=== PATIENT | female | born 1960 | race Caucasian/White ===

== ENCOUNTER 2016-08-11 06:34 | Emergency (ER) | payer BC ==
[2016-08-11] MEDS ORDERED: methylPREDNISolone Sodium Succinate 125 MG/2 ML SDV IVPUSH ONE (07:03)
[2016-08-11] MEDS ORDERED: Sodium Chloride 0.9% 10 ML Syringe FLUSH PRN (07:03)
[2016-08-11] MEDS ORDERED: Albuterol/Ipratropium 3.0-0.5 MG/3 ML Neb Soln NEB ONE (07:03)
--- NOTE | 2016-08-11 07:06 | EDM.PDOC ---
ED HISTORY OF PRESENT ILLNESS - General Chief Complaint: Asthma Stated Complaint: SOB Time Seen by Provider: 08/11/16 07:02 Source: Reports: Patient, Family, RN notes reviewed History Limitations: Reports: No limitations - History of Present Illness INITIAL COMMENTS - FREE TEXT/NARRATIVE: 55-year-old female presents emergency department complaint of shortness of breath she does have a known history of asthma she states symptoms that developed last 24 hours she's been unable if her breathing under control with her albuterol alone. - Related Data Allergies/ADRs: Allergies Allergy/AdvReac Type Severity Reaction Status Date / Time aspirin Allergy Abdominal Verified 08/11/16 06:39 Pain ibuprofen Allergy Abdominal Verified 08/11/16 06:39 Pain Penicillins Allergy Anaphylactic Verified 08/11/16 06:39 Shock Home Meds: Home Meds Albuterol Sulfate [Ventolin Hfa] 2 puff INH ASDIRECTED 06/02/16 [History] Amberan 2 cap PO DAILY 06/02/16 [History] Fluticasone/Salmeterol [Advair 250-50 Diskus] 1 puff INH ASDIRECTED 06/02/16 [ History] Montelukast Sodium [Singulair] 1 tab PO ASDIRECTED 06/02/16 [History] Past Medical History HEENT History: Reports: Impaired vision Respiratory History: Reports: Asthma Genitourinary History: Reports: UTI, recurrent [employer] History: Reports: Musculoskeletal History: Reports: Fracture Endocrine/Metabolic History: Reports: Hypothyroidism Hematologic History: Reports: Blood transfusion(s) - Infectious Disease History Infectious Disease History: Reports: Chicken pox - Past Surgical History Female Surgical History: Reports: section Social & Family History - Tobacco Use Smoking Status *Q: Never Smoker Second Hand Smoke Exposure: No - Caffeine Use Caffeine Use: Reports: Coffee - Alcohol Use Days Per Week of Alcohol Use: 0 - Recreational Drug Use Recreational Drug Use: No ED ROS GENERAL - Review of Systems Review Of Systems: See Below Constitutional: Denies: fever, chills HEENT: Reports: No symptoms Respiratory: Reports: Shortness of Breath, Wheezing, Cough. Denies: Sputum Cardiovascular: Reports: Dyspnea on exertion GI/Abdominal: Reports: No symptoms : Reports: no symptoms ED EXAM, GENERAL - Physical Exam Exam: See Below Exam Limited By: No limitations General Appearance: alert, WD/WN, no apparent distress Eye Exam: bilateral eye: normal inspection Neck: normal inspection, supple, non-tender, full range of motion Respiratory/Chest: no respiratory distress, respiratory distress, decreased breath sounds, crackles, rhonchi, wheezing (more upper air way), accessory muscle use Cardiovascular: regular rate, rhythm, no murmur Course - Vital Signs Last Recorded V/S: Last Vital Signs Temp 98.9 F 08/11/16 06:40 Pulse 115 H 08/11/16 08:44 Resp 28 H 08/11/16 08:44 BP 155/73 H 08/11/16 08:44 Pulse Ox 97 08/11/16 08:44 - Orders/Labs/Meds Orders: Active Orders 24 hr Category Date Time Status Peripheral IV Care [RC] . DIRECTED Care 08/11/16 07:03 Active RT Aerosol Therapy [RC] ASDIRECTED Care 08/11/16 07:03 Active RT Aerosol Therapy [RC] ASDIRECTED Care 08/11/16 08:15 Active Sodium Chloride 0.9% [Normal Saline] 1,000 ml Med 08/11/16 08:15 Active IV ASDIRECTED Sodium Chloride 0.9% [Saline Flush] Med 08/11/16 07:03 Active 10 ml FLUSH ASDIRECTED PRN Peripheral IV Insertion Adult [OM.PC] Urgent Oth 08/11/16 07:03 Ordered Medication Orders Sodium Chloride (Normal Saline) 1,000 mls @ 500 mls/hr IV ASDIRECTED CLARE Last Admin: 08/11/16 08:08 Dose: 500 mls/hr Sodium Chloride (Saline Flush) 10 ml FLUSH ASDIRECTED PRN PRN Reason: Keep Vein Open Last Admin: 08/11/16 07:09 Dose: 10 ml Meds: Medications Generic Name Dose Route Start Last Admin Trade Name Freq PRN Reason Stop Dose Admin Sodium Chloride 1,000 mls @ 500 mls/hr 08/11/16 08:15 08/11/16 08:08 Normal Saline IV 500 mls/hr ASDIRECTED CLARE Administration Sodium Chloride 10 ml 08/11/16 07:03 08/11/16 07:09 Saline Flush FLUSH 10 ml ASDIRECTED PRN Administration Keep Vein Open Discontinued Medications Generic Name Dose Route Start Last Admin Trade Name Freq PRN Reason Stop Dose Admin Albuterol/Ipratropium 3 ml 08/11/16 07:03 08/11/16 07:07 Duoneb 3.0-0.5 Mg/3 Ml NEB 08/11/16 07:04 3 ml ONETIME ONE Administration Diphenhydramine HCl 50 mg 08/11/16 07:48 08/11/16 07:51 Benadryl IVPUSH 08/11/16 07:49 50 mg ONETIME ONE Administration Epinephrine HCl 0.3 mg 08/11/16 07:47 08/11/16 07:50 Adrenalin 1:1000 IM 08/11/16 07:48 0.3 mg ONETIME ONE Administration Epinephrine HCl 0.3 mg 08/11/16 08:10 08/11/16 08:00 Adrenalin 1:1000 IM 08/11/16 08:11 0.3 mg ONETIME ONE Administration Lorazepam 1 mg 08/11/16 07:14 08/11/16 07:23 Ativan IVPUSH 08/11/16 07:15 1 mg ONETIME ONE Administration Methylprednisolone Sodium Succinate 125 mg 08/11/16 07:03 08/11/16 07:08 Solu-Medrol IVPUSH 08/11/16 07:04 125 mg ONETIME ONE Administration Racepinephrine 0.5 ml 08/11/16 08:15 08/11/16 08:20 S-2 2.25% NEB 08/11/16 08:16 0.5 ml ONETIME ONE Administration Ranitidine HCl 300 mg 08/11/16 08:16 08/11/16 08:30 Zantac PO 08/11/16 08:17 300 mg NOW STA Administration Departure - Departure Time of Disposition: 09:44 Disposition: Home, Self-Care 01 Condition: good Clinical Impression: Difficulty breathing Forms: ED Department Discharge Additional Instructions: Resume your regular medications, Please followup with your primary care provider in 3-5 days if not better, please call return to the emergency department with worsening of symptoms. - My Orders Last 24 Hours: My Active Orders 08/11/16 07:03 Peripheral IV Care [RC] . DIRECTED RT Aerosol Therapy [RC] ASDIRECTED Sodium Chloride 0.9% [Saline Flush] 10 ml FLUSH ASDIRECTED PRN Peripheral IV Insertion Adult [OM.PC] Urgent 08/11/16 08:15 RT Aerosol Therapy [RC] ASDIRECTED Sodium Chloride 0.9% [Normal Saline] 1,000 ml IV ASDIRECTED - Assessment/Plan Last 24 Hours: My Active Orders 08/11/16 07:03 Peripheral IV Care [RC] . DIRECTED RT Aerosol Therapy [RC] ASDIRECTED Sodium Chloride 0.9% [Saline Flush] 10 ml FLUSH ASDIRECTED PRN Peripheral IV Insertion Adult [OM.PC] Urgent 08/11/16 08:15 RT Aerosol Therapy [RC] ASDIRECTED Sodium Chloride 0.9% [Normal Saline] 1,000 ml IV ASDIRECTED Plan: Assessment Acuity = acute Site and laterality = difficulty breathing complicated patient with known moderate persistent asthma Etiology = unclear etiology suspicious for vocal cord dysfunction Manifestations = none Location of injury = [home Lab values = none Plan Given a variety of treatments including epinephrine, ranitidine, Benadryl, Solu- Medrol and racemic epinephrine nebulizer which did provide some relief to her, she has never had spirometry testing for official diagnosis of asthma her medications always been compared, recommend she establish primary care provider in town followup with diagnosis of asthma with spirometry if that is negative consider the diagnosis of vocal cord dysfunction and followup with speech pathology Patient was in agreement with the plan all questions were answered, they were instructed to return to the emergency department or call for worsening symptoms. This note was dictated using [employer] voice recognition software please call with any questions.
[2016-08-11] MEDS ORDERED: LORazepam 2 MG/ML MDV IVPUSH ONE (07:14)
[2016-08-11] MEDS ORDERED: EPINEPHrine 1:1000 1 MG/ML SDV IM ONE ×2 (07:47→08:10)
[2016-08-11] MEDS ORDERED: diphenhydrAMINE 50 MG/ML SDV IVPUSH ONE (07:48)
[2016-08-11] MEDS ORDERED: Sodium Chloride 0.9% 1,000 ML IV SCH (08:15)
[2016-08-11] MEDS ORDERED: Racepinephrine 2.25% 0.5 ML Neb Soln NEB ONE (08:15)
[2016-08-11 09:55] VITALS: BP 139/64
== END 2016-08-11 09:54 | disposition home or self-care (01) ==
LOC: JP.ED 06:34
DX: R06.89 Other abnormalities of breathing (principal); J45.909 Unspecified asthma, uncomplicated; E03.9 Hypothyroidism, unspecified; Z98.890 Other specified postprocedural states; Z79.899 Other long term (current) drug therapy; Z88.0 Allergy status to penicillin; Z88.8 Allergy status to other drugs, medicaments and biological substances
CPT/HCPCS: 96372; 96374; 96375; 99285; A9270; J0171; J1200; J2060; J2930; J7040; J7050; J7620

== ENCOUNTER 2018-01-18 05:54 | Day surgery (SDC) | payer BC, OTHER ==
[2018-01-18] MEDS ORDERED: fentaNYL 100 MCG/2 ML SDV ONE (07:04)
[2018-01-18] MEDS ORDERED: Propofol 200 MG/20 ML SDV ONE (07:04)
[2018-01-18] MEDS ORDERED: Glycopyrrolate 0.2 MG/ML 2 ML SDV IVPUSH ONE (07:04)
[2018-01-18] MEDS ORDERED: Midazolam 1 MG/ML 2 ML SDV ONE (07:04)
[2018-01-18] MEDS ORDERED: Dextrose 5%-Lactated Ringers 1,000 ML IV SCH (07:15)
[2018-01-18 08:44] VITALS: BP 115/83
--- NOTE | 2018-01-19 11:21 | OR ---
DATE OF PROCEDURE: 01/18/2018 PREOPERATIVE DIAGNOSIS: Probable gastroesophageal reflux disease. POSTOPERATIVE DIAGNOSES: 1. Gastroesophageal reflux disease refractory to medical management associated with small hiatal hernia and wide open esophagogastric junction. 2. Mild antral gastritis. OPERATIVE PROCEDURES: Esophagogastroduodenoscopy with: A. Biopsies of the antrum for CLOtest. B. Biopsies of esophagogastric junction for histologic evaluation. ANESTHESIA: IV sedation. INDICATION FOR PROCEDURE: This is a 57-year-old female presenting with longstanding gastroesophageal reflux symptoms. She has, for a considerable amount of time, been on omeprazole and more recently on Zantac. If the addition of Zantac does not significantly improve her reflux symptoms which include frequent episodes of heartburn as well as some bilious regurgitation at night, plan is to proceed with upper GI endoscopy with biopsies and/or dilation as indicated. Potential risks including bleeding and perforation were discussed, and the patient wishes to proceed. DESCRIPTION OF PROCEDURE: The patient was taken to the operating room and placed in a left lateral decubitus position. IV sedation was administered, after which the upper GI endoscope was passed orally through the length of the esophagus into the stomach with retroflexion view of the fundus, thereafter through the pyloric channel and up into the junction of the third and fourth portions of the duodenum. Findings included normal hypopharynx, larynx, upper esophageal sphincter, and esophageal body. At the EG junction, the patient was noted to have small hiatal hernia. This was associated with, however, a wide open esophagogastric junction with their being no barrier function between the stomach and the esophagus. At this point within the stomach, there was a small amount of retained bile. The patient had some mild redness in the antrum in general without erosions or ulcers. The visualized portion of the pyloric channel and duodenum were unremarkable. At this point, biopsies were taken from the antrum and sent for CLOtest for H. pylori. Following this, biopsies were obtained from the esophagogastric junction, sent for histologic evaluation. Minimal bleeding from the biopsy sites was seen and the procedure concluded. The patient was taken to the recovery room in satisfactory condition. The plan will be to see the patient back in followup on 01/27/2018. This will give some additional time to see if the Zantac is helping with regard to the symptoms. Otherwise, she is interested in a surgical antireflux procedure. Juancho Hilario MD /[id number]
== END 2018-01-18 08:45 | disposition home or self-care (01) ==
LOC: JP.SDS 05:54
PROVIDERS: ATTEND Surgery
DX: K21.9 Gastro-esophageal reflux disease without esophagitis (principal); K29.50 Unspecified chronic gastritis without bleeding; K44.9 Diaphragmatic hernia without obstruction or gangrene; J45.909 Unspecified asthma, uncomplicated; E66.9 Obesity, unspecified; Z79.899 Other long term (current) drug therapy
CPT/HCPCS: 43239; 87081; J2250; J2704; J3010; J3490; J7042; 88305

== ENCOUNTER 2018-10-07 09:13 | Day surgery (SDC) | payer OTHER ==
[2018-10-07] MEDS ORDERED: Glycopyrrolate 0.2 MG/ML 2 ML SDV IVPUSH ONE (09:45)
[2018-10-07] MEDS ORDERED: fentaNYL 100 MCG/2 ML SDV ONE (12:06)
[2018-10-07] MEDS ORDERED: Propofol 200 MG/20 ML SDV ONE (12:06)
[2018-10-07] MEDS ORDERED: Midazolam 1 MG/ML 2 ML SDV ONE (12:08)
[2018-10-07] MEDS ORDERED: Pantoprazole 40 MG Vial IVPUSH ONE (13:38)
[2018-10-07] MEDS: Dextrose 5%-Lactated Ringers 1,000 ML IV SCH ×2 (13:40→13:41)
[2018-10-07] MEDS ORDERED: Alum Hydrox/Mag Hydrox/Simeth 360 ML, Lidocaine 2% 60 ML PO SCH ×2 (14:15)
[2018-10-07 14:32] VITALS: BP 119/71
--- NOTE | 2018-10-08 14:13 | OR ---
DATE OF PROCEDURE: 10/07/2018 PREOPERATIVE DIAGNOSIS: Heartburn and dysphagia, status post previous Jorge fundoplication. POSTOPERATIVE DIAGNOSIS: Heartburn and dysphagia associated with: 1. Possible eosinophilic esophagitis. 2. Intact Jorge fundoplication. 3. Mild antral gastritis. OPERATIVE PROCEDURES: Esophagogastroduodenoscopy with: 1. Antral biopsies for CLOtest. 2. Biopsies of the esophagus at 3 levels (distal, mid, and proximal) to evaluate for possible eosinophilic esophagitis. ANESTHESIA: IV sedation. INDICATION FOR PROCEDURE: The patient is status post Jorge fundoplication in December 2018. From that point forward, she had done very well with regard to reflux symptoms. In the past few weeks with the onset of spring, she has noted quite a bit in the way of ongoing allergies and associated with this has developed some sense of heartburn and dysphagia despite ongoing medical management with Nexium. Plan is to proceed with upper GI endoscopy with biopsies as indicated for evaluation of the situation. Potential risks including bleeding and perforation were discussed, and the patient wishes to proceed. DETAILS OF PROCEDURE: The patient was taken to the operating room and placed in a left lateral decubitus position. IV sedation was administered, after which the upper GI endoscope was passed orally through the length of the esophagus and into the stomach with retroflexion view of the fundus and thereafter through the pyloric channel and into the junction of 3rd and 4th portions of the duodenum. Findings included normal hypopharynx, larynx, and upper esophageal sphincter. As one entered the body of the esophagus, there was noted to be some linear furrowing suggestive of eosinophilic esophagitis. As one passed down to the area of the EG junction, an otherwise intact Jorge fundoplication was present. There was no significant narrowing or tightening of that area and no gross inflammation of the distal esophageal mucosa per se. Within the stomach, retroflexion view once again confirmed an interval post Jorge fundoplication picture. There was some mild patchy redness in the antrum. The visualized portion of the pyloric channel and duodenum were unremarkable. At this point, biopsies were obtained from the antrum and sent for CLOtest for H. pylori. Given the suggestion of possible eosinophilic esophagitis, multiple biopsies were obtained from the distal esophagus, mid esophagus, and proximal esophagus and all sent as 3 separate specimens. Minimal bleeding from the biopsy sites was seen and the procedure then concluded. The patient was taken to the recovery room in satisfactory condition. At this point, the plan will be to see the patient back next Thursday. In the interim, we will have her continue the Nexium and we will also have her start a course of Xylocaine mixed with Maalox to be taken prior to meals to see if that helps with some of the symptoms. We will see her back next Thursday to review the findings and develop a treatment plan from that point forward. Juancho Hilario MD /[id number]
== END 2018-10-07 14:45 | disposition home or self-care (01) ==
LOC: JP.SDS 09:13
PROVIDERS: ATTEND Surgery
DX: K29.50 Unspecified chronic gastritis without bleeding (principal); K21.9 Gastro-esophageal reflux disease without esophagitis; Z98.890 Other specified postprocedural states; Z88.0 Allergy status to penicillin; Z88.6 Allergy status to analgesic agent; Z88.8 Allergy status to other drugs, medicaments and biological substances; Z91.030 Bee allergy status
CPT/HCPCS: 43239; 87081; A9270; C9113; J2250; J2704; J3010; J7042

== ENCOUNTER 2021-05-24 03:37 | Emergency (ER) | payer OTHER ==
[2021-05-24] MEDS ORDERED: Sodium Chloride 0.9% 10 ML Syringe FLUSH PRN (03:38)
[2021-05-24 04:52] LABS: CORONAVIRUS COVID-19 NAA POSITIVE (NEGATIVE)
[2021-05-24] MEDS ORDERED: Dexamethasone 4 MG/ML SDV IVPUSH ONE (05:38)
[2021-05-24 06:17] VITALS: BP 100/57; PULSE 80
== END 2021-05-24 08:27 | disposition home or self-care (01) ==
LOC: JP.ED 03:37
DX: U07.1 COVID-19 (principal); J12.82 Pneumonia due to coronavirus disease 2019; J96.01 Acute respiratory failure with hypoxia; J45.909 Unspecified asthma, uncomplicated; E66.9 Obesity, unspecified; Z68.39 Body mass index [BMI] 39.0-39.9, adult; Z91.030 Bee allergy status; Z88.0 Allergy status to penicillin; Z88.8 Allergy status to other drugs, medicaments and biological substances; Z88.1 Allergy status to other antibiotic agents; Z88.6 Allergy status to analgesic agent; Z79.899 Other long term (current) drug therapy
CPT/HCPCS: 0241U; 36415; 71045; 80053; 82728; 83605; 83615; 84484; 85025; 85379; 86140; 96374; 99285; J1100

== ENCOUNTER 2023-01-22 06:52 | Inpatient (IN) | payer BC, OTHER ==
[2023-01-22] MEDS ORDERED: ceFAZolin 2 GM in Premix Bag 1 BAG IV ONE (08:00)
[2023-01-22] MEDS ORDERED: Albuterol/Ipratropium 3.0-0.5 MG/3 ML Neb Soln NEB ONE (08:00)
[2023-01-22] MEDS: Dextrose 5%-Lactated Ringers 1,000 ML IV SCH ×3 (08:17→23:35)
[2023-01-22] MEDS ORDERED: fentaNYL 250 MCG/5 ML SDV ONE (08:37)
[2023-01-22] MEDS ORDERED: Rocuronium 50 MG/5 ML Vial ONE (08:37)
[2023-01-22] MEDS ORDERED: Propofol 200 MG/20 ML SDV ONE ×2 (08:37→09:03)
[2023-01-22] MEDS ORDERED: Dexamethasone 4 MG/ML SDV ONE (08:37)
[2023-01-22] MEDS ORDERED: Neostigmine Methylsulfate 1 MG/ML 5 ML Syringe ONE (08:37)
[2023-01-22] MEDS ORDERED: Glycopyrrolate 0.2 MG/ML 5 ML MDV ONE (08:37)
[2023-01-22] MEDS ORDERED: Ondansetron 4 MG/2 ML SDV ONE (08:37)
[2023-01-22] MEDS ORDERED: Scopolamine 1.5 MG Transdermal Patch TOP SCH (08:45)
[2023-01-22] MEDS ORDERED: Linezolid 600 MG/300 ML Premix Bag IRR ONE (10:40)
[2023-01-22] MEDS ORDERED: fentaNYL 100 MCG/2 ML SDV ONE ×2 (10:47→11:03)
[2023-01-22] MEDS ORDERED: Lactated Ringers 1,000 ML ONE (11:16)
[2023-01-22] MEDS ORDERED: HYDROmorphone 0.5 MG/0.5 ML Syringe IVPUSH PRN (13:00)
[2023-01-22] MEDS ORDERED: Albuterol/Ipratropium 3.0-0.5 MG/3 ML Neb Soln INH PRN (13:00)
[2023-01-22] MEDS ORDERED: HYDROmorphone 1 MG/ML Syringe IV PRN (13:00)
[2023-01-22] MEDS ORDERED: Ondansetron 4 MG/2 ML SDV IVPUSH PRN (13:00)
[2023-01-22] MEDS: Albuterol/Ipratropium 3.0-0.5 MG/3 ML Neb Soln INH SCH ×2 (14:28→20:33)
[2023-01-22] MEDS: Acetaminophen 500 MG Tab PO SCH ×2 (14:37→20:35)
[2023-01-22] MEDS: SCOPOLAMINE PATCH CHECK TOP SCH (14:38)
[2023-01-22] MEDS: ceFAZolin 2 GM in Premix Bag 1 BAG IV SCH (16:14)
[2023-01-22] MEDS: HYDROmorphone 2 MG Tab PO PRN (20:40)
[2023-01-23] MEDS: Acetaminophen 500 MG Tab PO SCH ×4 (01:44→20:54)
[2023-01-23] MEDS: HYDROmorphone 2 MG Tab PO PRN ×4 (01:45→20:58)
[2023-01-23] MEDS: ceFAZolin 2 GM in Premix Bag 1 BAG IV SCH ×2 (01:46→08:18)
[2023-01-23] MEDS: Albuterol/Ipratropium 3.0-0.5 MG/3 ML Neb Soln INH SCH ×4 (07:33→20:54)
[2023-01-23] MEDS: SCOPOLAMINE PATCH CHECK TOP SCH (10:38)
[2023-01-24] MEDS: Acetaminophen 500 MG Tab PO SCH ×2 (02:30→08:51)
[2023-01-24 05:23] LABS: ANION GAP 7.5 mmol/L (5.0-14.0); CALCIUM 7.8 mg/dL (8.5-10.1); CREATININE 1.1 mg/dL (0.6-1.0); EST CRCL DRUG DOSING (CG) 47.72 mL/min; MAGNESIUM 1.7 mg/dL (1.8-2.4); PHOSPHORUS 4.4 mg/dL (2.5-4.9); POTASSIUM,K 3.6 mmol/L (3.6-5.2)
[2023-01-24 05:33] VITALS: BP 123/68
[2023-01-24] MEDS: Albuterol/Ipratropium 3.0-0.5 MG/3 ML Neb Soln INH SCH ×2 (06:58→11:21)
[2023-01-24 06:59] VITALS: PULSE 62
[2023-01-24] MEDS: SCOPOLAMINE PATCH CHECK TOP SCH (08:51)
[2023-01-24] MEDS ORDERED: Levothyroxine 25 MCG Tab PO ONE (10:30)
[2023-01-24] MEDS ORDERED: Levothyroxine 100 MCG Tab PO ONE (10:30)
== END 2023-01-24 11:27 | disposition home or self-care (01) | DRG 404 ==
LOC: JP.SDS 06:52 → JP.MS 11:40
PROVIDERS: ADMIT Surgery; ATTEND Surgery
PROC: 0GTK0ZZ Resection of Thyroid Gland, Open Approach (ICD-10-PCS; principal; 2023-01-22)
DX: E04.1 Nontoxic single thyroid nodule (principal); J45.41 Moderate persistent asthma with (acute) exacerbation; E66.01 Morbid (severe) obesity due to excess calories; K21.9 Gastro-esophageal reflux disease without esophagitis; Z68.38 Body mass index [BMI] 38.0-38.9, adult; Z79.899 Other long term (current) drug therapy; Z88.8 Allergy status to other drugs, medicaments and biological substances; Z88.0 Allergy status to penicillin; Z91.030 Bee allergy status
CPT/HCPCS: 36415; 80048; 83735; 84100; 94640; A9270-GY; J0690; J1100; J2020; J2405; J2704; J2710; J3010; J3490; J7120; J7121; J7620

== ENCOUNTER 2025-01-23 09:15 | Emergency (ER) | payer BC ==
[2025-01-23 10:10] LABS: APPEARANCE,URINE TURBID (CLEAR); GLUCOSE,URINE NEGATIVE (NEGATIVE); OCCULT BLOOD,URINE LARGE (NEGATIVE)
[2025-01-23 10:13] LABS: SQUAMOUS EPITHELIAL CELLS,UR NOT SEEN /HPF; UROTHELIAL CELLS,URINE NOT SEEN /HPF
[2025-01-23 11:37] VITALS: BP 127/78; PULSE 80
== END 2025-01-23 10:29 | disposition home or self-care (01) ==
LOC: JP.ED 09:15
DX: N39.0 Urinary tract infection, site not specified (principal); E66.9 Obesity, unspecified; E03.9 Hypothyroidism, unspecified; Z88.0 Allergy status to penicillin; Z88.1 Allergy status to other antibiotic agents; Z88.8 Allergy status to other drugs, medicaments and biological substances; Z91.030 Bee allergy status; Z79.890 Hormone replacement therapy; Z79.899 Other long term (current) drug therapy; Z68.37 Body mass index [BMI] 37.0-37.9, adult
CPT/HCPCS: 81001; 87086; 87088; 87186; 99283